=== PATIENT | male | born 1930 | race Caucasian/White ===

== ENCOUNTER 2016-12-14 21:49 | Emergency (ER) | payer MEDICARE, BC ==
[~2016-12-14] VITALS: Ht 182.9 cm; Wt 90.2 kg
[~2016-12-14 21:49] MED LIST: CELE200 PO; PROS5TAB2 PO; ROSU10 PO
[2016-12-14 21:53] VITALS: BP 123/64; PULSE 106; RESP 18; TEMP 99.4; O2SAT 91
[2016-12-14] MEDS ORDERED: methylPREDNISolone SOD SUCC 125 MG/2 ML VIAL IVP ONE (22:00)
[2016-12-14] MEDS ORDERED: SODIUM CHLORIDE 0.9% FLUSH 5 ML FLUSH IVF PRN (22:00)
[2016-12-14] MEDS ORDERED: RESP: ALBUTEROL 2.5 MG/IPRATROPIUM 0.5 MG NEB (SCH) INH ONE (22:00)
[2016-12-14 22:04] VITALS: O2SAT 92
--- NOTE | 2016-12-14 22:47 | RADRPT ---
EXAM DATE/TIME: 12/14/2016 22:13 [place] COMPARISON: CHEST SINGLE AP, October 14, 2016, 0:05. INDICATIONS : Short of breath MEDICAL HISTORY : None. SURGICAL HISTORY : None. ENCOUNTER: Initial ACUITY: 1 day PAIN SCORE: 0/10 LOCATION: Bilateral chest FINDINGS: A single view of the chest demonstrates mild basilar airspace disease. Small effusions. No pneumothor ax. Heart size mildly enlarged. CONCLUSION: 1. Mild basilar airspace disease, slightly improved from September 2016 comparison. Galdino Mcleod MD on December 14, 2016 at 22:44 Board Certified Radiologist. This report was verified electronically.
--- NOTE | 2016-12-14 23:00 | PD ---
HPI Chief Complaint: Respiratory Symptoms Time Seen by Provider: 22:56 Travel History International Travel<30 days: No Contact w/Intl Traveler<30days: No Traveled to known affect area: No History of Present Illness HPI Patient comes from shelter after reportedly being short of breath. Patient denies any shortness breath, chest pain, nausea, vomiting, or fevers. Patient states he has a history of emphysema and he is feeling fine currently. EMS notes the patient did get 1 breathing treatment prior to their arrival and patient is a second one in route. PFSH Past Medical History Anxiety: Yes Cancer: No Cardiovascular Problems: No High Cholesterol: Yes Diabetes: No Diminished Hearing: Yes (hearing aid left side) Deep Vein Thrombosis: Yes GERD: Yes Glaucoma: No Hepatitis: No Hiatal Hernia: No Hypertension: No Inguinal Hernia: Yes (with obstruction) Medical other: Yes (ARTHRITIS) Respiratory: No Thyroid Disease: No Past Surgical History Abdominal Surgery: Yes (BOWEL SX) Cardiac Surgery: No Ear Surgery: Yes (REVISED STAPES IN BILATERAL EAR) Endocrine Surgery: No Eye Surgery: No Genitourinary Surgery: Yes (TURP) Gynecologic Surgery: No Oral Surgery: Yes (TONSILLECTOMY) Pacemaker: No Thoracic Surgery: Yes (INFECTION REMOVED FROM UPPER STERNAL AREA) Other Surgery: Yes Social History Alcohol Use: Yes (OCC. BEER) Tobacco Use: No Substance Use: No Allergies-Medications (Allergen,Severity, Reaction): Coded Allergies: No Known Allergies (Verified , 01/28/09) Reported Meds & Prescriptions Reported Meds & Active Scripts Active Reported Proscar (Finasteride) 5 Mg Tab 5 Mg PO Crestor (Rosuvastatin Calcium) 10 Mg Tab 10 Mg PO DAILY Celebrex (Celecoxib) 200 Mg Cap 200 Mg PO DAILY Review of Systems Except as stated in HPI: all other systems reviewed are Neg Physical Exam Narrative GENERAL: Well-developed, overly nourished, in no acute distress, and non-ill appearing. SKIN: Warm and dry. Well-healing recent surgical wound noted in abdomen. HEAD: Atraumatic. Normocephalic. EYES: Pupils equal and round. EOMI. No scleral icterus. No injection or drainage. ENT: No nasal bleeding or discharge. Mucous membranes pink and moist. NECK: Trachea midline. Supple. No nuclear rigidity. CARDIOVASCULAR: Regular rate and rhythm. No murmur appreciated. RESPIRATORY: No accessory muscle use. No respiratory distress. Decreased breath sounds in scant wheezing noted throughout. Patient speaking in full sentences. GASTROINTESTINAL: Abdomen soft, non-tender, nondistended. Hepatic and splenic margins not palpable. No pulsatile mass. MUSCULOSKELETAL: No obvious deformities. No clubbing. No cyanosis. No edema. Full range of motion. NEUROLOGICAL: Awake and alert. No obvious cranial nerve deficits. Motor grossly within normal limits. Normal speech. PSYCHIATRIC: Appropriate mood and affect; insight and judgment normal. Data Data Last Documented VS Vital Signs Date Time Temp Pulse Resp B/P Pulse Ox O2 Delivery O2 Flow Rate FiO2 12/14/16 22:04 92 Nasal Cannula 4 12/14/16 21:53 99.4 106 18 123/64 Orders Complete Blood Count With Diff (12/14/16 22:00) Comprehensive Metabolic Panel (12/14/16 22:00) B-Type Natriuretic Peptide (12/14/16 22:00) Act Partial Throm Time (Ptt) (12/14/16 22:00) Prothrombin Time / Inr (Pt) (12/14/16 22:00) Magnesium (Mg) (12/14/16 22:00) Ckmb (Isoenzyme) Profile (12/14/16 22:00) Troponin I (12/14/16 22:00) Urinalysis - C+S If Indicated (12/14/16 22:00) Iv Access Insert/Monitor (12/14/16 22:00) Electrocardiogram (12/14/16 22:00) Ecg Monitoring (12/14/16 22:00) Oximetry (12/14/16 22:00) Oxygen Administration (12/14/16 22:00) Chest, Single Ap (12/14/16 22:00) Sodium Chloride 0.9% Flush (Ns Flush) (12/14/16 22:00) Methylprednisolone So Succ Inj (Solumedr (12/14/16 22:00) Albuterol-Ipratropium Neb (Duoneb Neb) (12/14/16 22:00) [facility] Medical Decision Making Medical Screen Exam Complete: Yes Emergency Medical Condition: Yes Differential Diagnosis Pneumonia, COPD exacerbation, emphysema, other Narrative Course Patient seen and examined. Initial laboratory and radiological studies were ordered. Patient was signed out to Dr. Mix. Please see her documentation for final diagnosis and disposition. Weston Schmid Dec 14, 2016 23:00
[2016-12-14 23:27] LABS: AUTOMATED NEUTROPHIL # 6.5 TH/MM3 (1.8-7.7); BASOPHIL # 0.1 TH/MM3 (0-0.2); BASOPHIL % 0.6 % (0.0-2.0); EOSINOPHIL # 0.1 TH/MM3 (0-0.4); EOSINOPHIL % 1.3 % (0.0-4.0); HEMATOCRIT 32.5 % (39.0-51.0); HEMO FLAGS DIFF FINAL; LYMPH % 13.5 % (9.0-44.0); LYMPHOCYTE # 1.2 TH/MM3 (1.0-4.8); MEAN CELL VOLUME 77.7 FL (80.0-100.0); MEAN CORPUSCULAR HEMOGLOBIN 26.3 PG (27.0-34.0); MEAN CORPUSCULAR HGB CONC 33.8 % (32.0-36.0); MONO % 9.6 % (0.0-8.0); PLATELET COUNT 177 TH/MM3 (150-450); RED BLOOD COUNT 4.18 MIL/MM3 (4.50-5.90); RED CELL DISTRIBUTION WIDTH 16.7 % (11.6-17.2); WHITE BLOOD COUNT 8.6 TH/MM3 (4.0-11.0)
[2016-12-14 23:36] LABS: APTT (PATIENT) 34.3 SEC (24.3-30.1); INTERNATIONAL NORMALIZED RATIO 1.2 RATIO
[2016-12-14 23:49] LABS: ALT (GPT) 14 U/L (12-78); ANION GAP 11 MEQ/L (5-15); AST (GOT) 11 U/L (15-37); BICARBONATE 20.8 MEQ/L (21.0-32.0); BLOOD UREA NITROGEN 17 MG/DL (7-18); CHLORIDE 101 MEQ/L (98-107); GLOMERULAR FILTRATION RATE 49 ML/MIN (>89); MAGNESIUM 1.6 MG/DL (1.5-2.5); POTASSIUM 3.4 MEQ/L (3.5-5.1); SODIUM (NA) 133 MEQ/L (136-145)
[2016-12-14 23:53] LABS: ALKALINE PHOSPHATASE 91 U/L (45-117); TOTAL BILIRUBIN ADULT 0.9 MG/DL (0.2-1.0)
[2016-12-14 23:58] LABS: CREATINE KINASE 58 U/L (39-308)
[2016-12-15] MEDS ORDERED: ZITHTAB PO (01:01)
[2016-12-15] MEDS ORDERED: MEDR4PAK PO (01:01)
--- NOTE | 2016-12-15 01:02 | PD ---
Physical Exam Narrative General: The patient is a well-developed well-nourished male in no acute distress. Head and Neck exam: Head is normocephalic atraumatic. Eyes: Pupils are equal round and reactive to light. Nose: Midline septum with pink mucous membranes Mouth: Dentition unremarkable. Moist mucus membranes. Posterior oropharynx is not erythematous. No tonsillar hypertrophy. Uvula midline. Airway patent. Neck: No palpable lymphadenopathy. No nuchal rigidity. No thyromegaly. Cardiovascular: Regular rate and rhythm without murmurs, gallops, or rubs. Lungs: Clear to auscultation bilaterally. No wheezes, rhonchi, or rales. Abdomen: Soft, without tenderness to palpation in all 4 quadrants of the abdomen. No guarding, rebound, or rigidity. Normal bowel sounds are audible. Extremities: No clubbing, cyanosis, or edema. 2+ pulses in all 4 extremities. No calf tenderness on palpation. Back: No spinous process tenderness to palpation. No costovertebral angle tenderness to palpation. Neurologic Exam: Grossly nonfocal. Skin Exam: No rash noted. Intact skin that is warm and dry. Data Data Last Documented VS Vital Signs Date Time Temp Pulse Resp B/P Pulse Ox O2 Delivery O2 Flow Rate FiO2 12/14/16 22:04 92 Nasal Cannula 4 12/14/16 21:53 99.4 106 18 123/64 Orders Complete Blood Count With Diff (12/14/16 22:00) Comprehensive Metabolic Panel (12/14/16 22:00) B-Type Natriuretic Peptide (12/14/16 22:00) Act Partial Throm Time (Ptt) (12/14/16 22:00) Prothrombin Time / Inr (Pt) (12/14/16 22:00) Magnesium (Mg) (12/14/16 22:00) Ckmb (Isoenzyme) Profile (12/14/16 22:00) Troponin I (12/14/16 22:00) Urinalysis - C+S If Indicated (12/14/16 22:00) Iv Access Insert/Monitor (12/14/16 22:00) Electrocardiogram (12/14/16 22:00) Ecg Monitoring (12/14/16 22:00) Oximetry (12/14/16 22:00) Oxygen Administration (12/14/16 22:00) Chest, Single Ap (1/30/17 22:00) Sodium Chloride 0.9% Flush (Ns Flush) (12/14/16 22:00) Methylprednisolone So Succ Inj (Solumedr (12/14/16 22:00) Albuterol-Ipratropium Neb (Duoneb Neb) (12/14/16 22:00) Labs Laboratory Tests Test 12/14/16 23:05 White Blood Count 8.6 TH/MM3 Red Blood Count 4.18 MIL/MM3 Hemoglobin 11.0 GM/DL Hematocrit 32.5 % Mean Corpuscular Volume 77.7 FL Mean Corpuscular Hemoglobin 26.3 PG Mean Corpuscular Hemoglobin 33.8 % Concent Red Cell Distribution Width 16.7 % Platelet Count 177 TH/MM3 Mean Platelet Volume 8.7 FL Neutrophils (%) (Auto) 75.0 % Lymphocytes (%) (Auto) 13.5 % Monocytes (%) (Auto) 9.6 % Eosinophils (%) (Auto) 1.3 % Basophils (%) (Auto) 0.6 % Neutrophils # (Auto) 6.5 TH/MM3 Lymphocytes # (Auto) 1.2 TH/MM3 Monocytes # (Auto) 0.8 TH/MM3 Eosinophils # (Auto) 0.1 TH/MM3 Basophils # (Auto) 0.1 TH/MM3 CBC Comment DIFF FINAL Differential Comment Prothrombin Time 13.0 SEC Prothromb Time International 1.2 RATIO Ratio Activated Partial 34.3 SEC Thromboplast Time Sodium Level 133 MEQ/L Potassium Level 3.4 MEQ/L Chloride Level 101 MEQ/L Carbon Dioxide Level 20.8 MEQ/L Anion Gap 11 MEQ/L Blood Urea Nitrogen 17 MG/DL Creatinine 1.38 MG/DL Estimat Glomerular Filtration 49 ML/MIN Rate Random Glucose 163 MG/DL Calcium Level 8.0 MG/DL Magnesium Level 1.6 MG/DL Total Bilirubin 0.9 MG/DL Aspartate Amino Transf 11 U/L (AST/SGOT) Alanine Aminotransferase 14 U/L (ALT/SGPT) Alkaline Phosphatase 91 U/L Total Creatine Kinase 58 U/L Troponin I 0.05 NG/ML Total Protein 7.4 GM/DL Albumin 2.4 GM/DL B-Type Natriuretic Peptide 209 PG/ML [facility] Medical Record Reviewed: Yes Supervised Visit with TUSHAR: No Interpretation(s) Last Impressions Chest X-Ray 12/14/160 Signed Impressions: Service Date/Time: Wednesday, December 14, 2016 22:13 - CONCLUSION: 1. Mild basilar airspace disease, slightly improved from September 2016 comparison. Galdino Mcleod MD Narrative Course During the course of the patients emergency department visit, the patients history, examination, and differential diagnosis were reviewed with the patient. The patient had IV access obtained and blood work sent for analysis. The patient was placed on a manager cardiac with oximetry and blood pressure monitoring. The patient was initially seen by Weston, the physician senior assistant manager. He requested that I assumed care of the patient when his shift ended. According to the patient and the patient's family members at the bedside the patient has had wheezing, shortness of breath noted. He has also been complaining of pain with urinating into his Xiong catheter. On arrival the patient's Xiong catheter had very little urine and has had very little urine output during his observation. The patient's catheter will be irrigated to reassess function. If the catheter is not functioning well the catheter will be replaced. The patients laboratory studies were reviewed and remarkable for a white count of 8.6, hemoglobin 11, platelets 177 with 75 neutrophils, monocytes 9.6, CMP is remarkable for sodium of 133, potassium 3.4, CO2 20.8, creatinine 1.38, glucose 163, AST 11, BNP is 209, albumin 2.4, PT 13, INR 1.2, PTT 34.3. Donaldo provided the patient with Solu-Medrol 125 mg IV, a DuoNeb times one as he had reportedly received nebulizer treatments prior to arrival. On my examination the patient, the patient is resting comfortably. He is easily arousable. The patient is saturating 95% on 4 L. The patient's family reports that he has been on supplemental oxygen between 2 and 4 L at his rehabilitation facility. The patient appears to be breathing more comfortably at this time for Radiology studies were reviewed and remarkable for a chest x-ray that shows mild bibasilar airspace disease, slightly improved from September 2016 comparison. The patient will be discharged back to his rehabilitation facility with a prescription for Medrol Dosepak taper and antibiotic for a COPD exacerbation with bronchitis. The patient is resting comfortably and feels better, is alert and in no distress. The patients results and examination findings were discussed with the patient. The repeat examination is unremarkable and benign. The history, exam, diagnostic testing, and current condition do not suggest any significant pathology to warrant further testing, continued ED treatment, admission, or surgical evaluation at this point. The vital signs have been stable. The patient does not have uncontrollable pain, intractable vomiting, or other significant symptoms. The patient's condition is stable and appropriate for discharge. The patient will pursue further outpatient evaluation with a primary care physician or other designated or consulting physician as indicated in the discharge instructions. The patient expressed understanding and was agreeable with this plan. Diagnosis Primary Impression: COPD exacerbation Additional Impression: Urinary retention Referrals: Primary Care Physician 2 days Patient Instructions: COPD (Chronic Obstructive Pulmonary Disease) (ED), General Instructions Med/Other Pt SpecificInfo: Prescription(s) given Scripts Methylprednisolone Dosepak (Medrol Dosepak)4 Mg Dspk4 Mg PO DIRECTED #1 DSPK Ref 0 Per Pharmacist direction Prov:Reina Mix MD 12/15/16 Azithromycin (Zithromax Z-Jarod)250 Mg [id number] Mg PO DIRECTED #1 DSPK Ref 0 500 MG (2 tabs) day 1, then 1 tab days 2-5. Prov:Reina Mix MD 12/15/16 Disposition: 03 DISCHARGE TO SNF Condition: Stable Reina Mix MD Dec 15, 2016 01:02
[2016-12-15 01:30] LABS: BACTERIA, URINE OCC /hpf; BLOOD, URINE MOD (NEG); GLUCOSE,URINE NEG (NEG); KETONE, URINE NEG (NEG); MUCUS URINE FEW /lpf (OCC); NITRITE,URINE POS (NEG); RENAL EPITHELIAL CELLS <1 /hpf; SQUAMOUS EPITHELIAL CELL URINE 1 /hpf (0-5); URINE COLOR DARK-BROWN (YELLW/STRAW)
[2016-12-15 01:31] LABS: COMMENT (UR) CULTURE INDICATED; CULTURE IF INDICATED CULTURE INDICATED
[2016-12-15 01:47] VITALS: BP 162/70; PULSE 91; RESP 18; O2SAT 92
[2016-12-15 04:58] VITALS: BP 155/73; PULSE 71; RESP 18; O2SAT 98
[2016-12-15 07:00] VITALS: BP 150/67; PULSE 76; RESP 19; O2SAT 100
[2016-12-15 08:00] VITALS: BP 140/67; PULSE 70; RESP 15; O2SAT 99
[2016-12-15 09:00] VITALS: BP 150/70; PULSE 75; RESP 16; O2SAT 99
[2016-12-15 10:00] VITALS: BP 146/69; PULSE 72; RESP 15; O2SAT 0
--- NOTE | 2016-12-15 14:25 | EKG ---
Date Performed: 12/14/2016 Time Performed: 22:58:45 PTAGE: 86 years EKG: Sinus rhythm WITH OCCASIONAL SUPRAVENTRICULAR PREMATURE COMPLEXES INCOMPLETE RIGHT BUNDLE BRANCH BLOCK LEFT ANTER IOR FASCICULAR BLOCK ST DEVIATION AND MODERATE T-WAVE ABNORMALITY, CONSIDER ANTERIOR ISCHEMIA ABNORMA L ECG Compared to the PREVIOUS TRACING , lateral T wave changes are new. Clinical correlation advised. PREVIOU S TRACIN10/13/2016 23.36 DOCTOR: Toña Buchanan Interpretating Date/Time 12/15/2016 14:23:22
== END 2016-12-15 10:49 ==
LOC: NEPE 21:49 → NEPA 12-15 10:49
DX: J44.1 Chronic obstructive pulmonary disease with (acute) exacerbation (principal); R33.9 Retention of urine, unspecified; F41.9 Anxiety disorder, unspecified; E78.00 Pure hypercholesterolemia, unspecified
CPT/HCPCS: 51700; 71010; 80053; 81001; 82550; 83735; 83880; 84484; 85025; 85610; 85730; 86403; 87086; 87186; 93005; 94664; 96374; 99285; J2930